=== PATIENT | male | born 1970 | race Two or more races ===

== ENCOUNTER 2020-01-06 09:24 | Day surgery (SDC) | payer OTHER ==
[~2020-01-06 09:24] MED LIST: PROPOFOL INJ 200 MG/20 ML VIAL IV ONE
[2020-01-06 11:57] VITALS: BP 115/80
--- NOTE | 2020-01-06 12:42 | Operative Report ---
Operative Report DATE OF SURGERY: 01/06/20 Operative Report: The risk, benefits and alternatives of the procedure including the risk of bleeding, perforation requiring surgery have been explained to the patient in detail and informed consent has been obtained. The patient is placed in a left, lateral decubital position. Timeout was called. Propofol medication is administered. Rectal examination is done which did not reveal any masses, tears or fissures. An Olympus videoscope was introduced into the patient's rectum. Scope was then carefully advanced all the way to the cecum. Cecum was identified by the usual anatomical landmarks including the ileocecal valve as well as the appendiceal office. Photodocumentation was obtained. The scope was then sequentially pulled back through the various segments of the colon. Retroflexion maneuvers performed. PREOPERATIVE DIAGNOSIS: Colorectal cancer screening POSTOPERATIVE DIAGNOSIS: Normal screening colonoscopy OPERATION: Diagnostic colonoscopy SURGEON: SHERLEY RODARTE ANESTHESIA: LMAC TISSUE REMOVED OR ALTERED: None. COMPLICATIONS: None. ESTIMATED BLOOD LOSS: None. INTRAOPERATIVE FINDINGS: As noted above. PROCEDURE: Patient tolerated the procedure well. No immediate postprocedure complications are noted. Patient is discharged in good condition. Discharge date 01/06/2020. Discharge diet: Regular. Discharge activity: Regular. 2 to 3-week follow-up to discuss findings. Patient is instructed call the office or proceed to the emergency room should there be any further problems or questions. 10-year surveillance colonoscopy.
== END 2020-01-06 11:55 | disposition home or self-care (01) ==
LOC: END 09:24
PROVIDERS: ATTEND Internal Medicine Gastroenterology
DX: Z12.11 Encounter for screening for malignant neoplasm of colon (principal); I10 Essential (primary) hypertension; F17.210 Nicotine dependence, cigarettes, uncomplicated; Z79.899 Other long term (current) drug therapy
CPT/HCPCS: 45378; J2704; 812

== ENCOUNTER 2020-12-20 15:56 | Emergency (ER) | payer OTHER ==
[2020-12-20] MEDS ORDERED: ASPIRIN 81 MG TABLET, CHEWABLE PO ONE (16:29)
--- NOTE | 2020-12-20 16:33 | ER Document Report ---
ED Medical Screen (RME) - General Chief Complaint: Abnormal Lab Results Stated Complaint: ABNORMAL LABS Time Seen by Provider: 12/20/20 16:17 Primary Care Provider: CORWIN HERNANDEZ PA-C [Primary Care Provider] - Follow up as needed Notes: Patient is a 60-year-old male presents emergency department with an elevated troponin at his primary care's office. Patient states that he had his labs drawn yesterday and the results came back today. States that he first had chest pain 2 to 3 days ago. Says it would come and go. Exam: S1, S2. I have greeted and performed a rapid initial assessment of this patient. A comprehensive ED assessment and evaluation of the patient, analysis of test results and completion of medical decision making process will be conducted by an additional ED providers. TRAVEL OUTSIDE OF THE [place] IN LAST 30 DAYS: No - Related Data Allergies/Adverse Reactions: No Known Allergies Allergy (Verified 01/03/20 13:52) Past Medical History - Past Medical History Cardiac Medical History: Reports: Hx Hypertension Denies: Hx Coronary Artery Disease, Hx Heart Attack Pulmonary Medical History: Denies: Hx Asthma, Hx Bronchitis, Hx COPD, Hx Pneumonia Neurological Medical History: Denies: Hx Cerebrovascular Accident, Hx Seizures Musculoskeltal Medical History: Denies Hx Arthritis - Immunizations Hx Diphtheria, Pertussis, Tetanus Vaccination: No Physical Exam - Vital signs Vitals: Temp Pulse Resp BP Pulse Ox 98.2 F 65 20 149/96 H 97 12/20/20 16:02 12/20/20 16:02 12/20/20 16:02 12/20/20 16:02 12/20/20 16:02 Course - Vital Signs Vital signs: Temp Pulse Resp BP Pulse Ox 98.2 F 65 20 149/96 H 97 12/20/20 16:02 12/20/20 16:02 12/20/20 16:02 12/20/20 16:02 12/20/20 16:02 Doctor's Discharge - Discharge Referrals: CORWIN HERNANDEZ PA-C [Primary Care Provider] - Follow up as needed
--- NOTE | 2020-12-20 17:04 | RADIOLOGY REPORT (SQ) ---
EXAM DESCRIPTION: CHEST SINGLE VIEW IMAGES COMPLETED DATE/TIME: 12/20/2020 3:43 pm REASON FOR STUDY: chest pain. COMPARISON: None. EXAM PARAMETERS: NUMBER OF VIEWS: One view. TECHNIQUE: Single frontal radiographic view of the chest acquired. RADIATION DOSE: NA LIMITATIONS: None. FINDINGS: LUNGS AND PLEURA: No opacities, masses or pneumothorax. No pleural effusion. MEDIASTINUM AND HILAR STRUCTURES: No masses. Contour normal. HEART AND VASCULAR STRUCTURES: Heart normal in size. Normal vasculature. BONES: No acute findings. HARDWARE: None in the chest. OTHER: No other significant finding. IMPRESSION: NO ACUTE RADIOGRAPHIC FINDING IN THE CHEST. TECHNICAL DOCUMENTATION: JOB ID: [id number] [employer]- All Rights Reserved Reading location - IP/workstation name: [email or web address]
[2020-12-20 17:42] LABS: ABSOLUTE EOSINOPHILS # (AUTO) 0.1 10^3/uL (0.0-0.6); ABSOLUTE LYMPHOCYTES (AUTO) 1.7 10^3/uL (0.5-4.7); ABSOLUTE MONOCYTES (AUTO) 0.5 10^3/uL (0.1-1.4); BASOPHILS % (AUTO) 0.8 % (0-2); EOSINOPHILS % (AUTO) 2.1 % (0-6); HEMOGLOBIN 15.7 g/dL (13.5-17.0); LYMPHOCYTES % (AUTO) 31.2 % (13-45); MEAN CORPUSCULAR HEMOGLOBIN 32.4 pg (27.0-33.4); MEAN CORPUSCULAR HGB CONC 34.8 g/dL (32.0-36.0); MEAN CORPUSCULAR VOLUME 93 fl (80-97); MONOCYTES % (AUTO) 10.2 % (3-13); PLATELET COUNT 217 10^3/uL (150-450); RED BLOOD COUNT 4.83 10^6/uL (4.35-5.55); RED CELL DISTRIBUTION WIDTH 13.3 % (11.5-14.0); SEGMENTED NEUTROPHILS % (AUTO) 55.7 % (42-78); TOTAL CELLS COUNTED % (AUTO) 100 %; WHITE BLOOD COUNT 5.3 10^3/uL (4.0-10.5)
[2020-12-20 18:01] LABS: ALBUMIN 4.6 g/dL (3.5-5.0); ALKALINE PHOSPHATASE 61 U/L (38-126); ANION GAP 8 (5-19); ASPARTATE AMINO TRANSFERASE 45 U/L (17-59); BILIRUBIN,DIRECT 0.2 mg/dL (0.0-0.4); BILIRUBIN,TOTAL 0.9 mg/dL (0.2-1.3); BLOOD UREA NITROGEN 26 mg/dL (7-20); CALCIUM 9.5 mg/dL (8.4-10.2); CARBON DIOXIDE 31 mmol/L (22-30); CHLORIDE 100 mmol/L (98-107); CREATINE KINASE 113 U/L (55-170); GLUCOSE 94 mg/dL (75-110); POTASSIUM 4.3 mmol/L (3.6-5.0); TOTAL PROTEIN 7.7 g/dL (6.3-8.2)
--- NOTE | 2020-12-20 18:59 | ER Document Report ---
ED General - General Chief Complaint: Abnormal Lab Results Stated Complaint: ABNORMAL LABS Time Seen by Provider: 12/20/20 16:17 Primary Care Provider: YARON WATSON MD [ACTIVE STAFF] - Follow up tomorrow CORWIN HERNANDEZ PA-C [PHYSICIAN CARPENTRY SUPERVISOR] - Follow up tomorrow TRAVEL OUTSIDE OF THE [place] IN LAST 30 DAYS: No - HPI Notes: Patient is a 50-year-old male with a past medical history of hypertension and high cholesterol who presents with episodes of chest pain. Patient states he has anxiety and white coat syndrome. He went to his doctors for a physical on Monday. He states he was very stressed there. They measured a blood pressure of 200. He attributes this all to stress. On , he woke up and was having left-sided chest tightness that radiated down his left arm. It lasted about 5 minutes. He states he was not nauseous but did feel a bit "off ". He laid down and symptoms resolved within 5 minutes. The same episode happen Monday morning. He went to his PCP's office on where he had an EKG and blood work. They called him today and told him to go to the ER because his cardiac enzymes were elevated. Patient is currently denying any chest pain at all. He states that he was active after the appointment and raked leaves and walked around and did not have any chest pain at all with movement. He is symptom-free. Patient already had aspirin today. - Related Data Allergies/Adverse Reactions: No Known Allergies Allergy (Verified 01/03/20 13:52) Home Medications: Candesartan-HCTZ Past Medical History - General Information source: Patient, Relative - Social History Smoking Status: Current Some Day Smoker Frequency of alcohol use: Social Drug Abuse: None Family History: CAD - Past Medical History Cardiac Medical History: Reports: Hx Hypercholesterolemia, Hx Hypertension Denies: Hx Coronary Artery Disease, Hx Heart Attack Pulmonary Medical History: Denies: Hx Asthma, Hx Bronchitis, Hx COPD, Hx Pneumonia Neurological Medical History: Denies: Hx Cerebrovascular Accident, Hx Seizures Musculoskeletal Medical History: Denies Hx Arthritis - Immunizations Hx Diphtheria, Pertussis, Tetanus Vaccination: No Review of Systems - Review of Systems Notes: CONSTITUTIONAL: No fever, fatigue or weight loss. SKIN: No rash. HENT: No congestion, ear pain, or sore throat. EYES: No recent vision problems or eye pain. CARDIOVASCULAR: Positive for episode of chest pain. RESPIRATORY: No cough, shortness of breath, congestion, or wheezing. GASTROINTESTINAL: No abdominal pain, nausea, vomiting, bloody stools or diarrhea. GENITOURINARY: No dysuria. MUSCULOSKELETAL: No joint pain or swelling. LYMPHATIC: No swollen glands. NEUROLOGIC: No seizures. No headache, focal weakness or sensory changes. HEMATOLOGIC: No unusual bruising or bleeding. PSYCHIATRIC: No depression or anxiety. Physical Exam - Vital signs Vitals: Temp Pulse Resp BP Pulse Ox 98.2 F 65 20 149/96 H 97 12/20/20 16:02 12/20/20 16:02 12/20/20 16:02 12/20/20 16:02 12/20/20 16:02 - General General appearance: Appears well In distress: None Notes: VITAL SIGNS: Within normal limits. GENERAL: No acute distress, non-toxic appearance. HEAD: Normal with no signs of head trauma. EYES: Conjunctiva normal, no discharge. EARS: Hearing grossly intact. NOSE: Normal. NECK: Normal range of motion. Supple. CHEST: Clear breath sounds bilaterally. No wheezes, rales, or rhonchi. CARDIAC: Regular rate and rhythm. S1 and S2, without murmurs, gallops, or rubs. VASCULAR: No Edema. ABDOMEN: Normal and soft with no tenderness. GENITOURINARY: Normal, No tenderness MUSCULOSKELETAL: Good range of motion of all major joints. Extremities without clubbing, cyanosis or edema. NEUROLOGICAL: Alert and oriented x 3. No focal sensory or strength deficits. Speech normal. Follows commands appropriately. PSYCHIATRIC: Normal Affect, judgement and mood. SKIN: Normal appearance with no rashes or lesions. Course - Re-evaluation Re-evalutation: 12/20/20 18:59 Patient appears well on exam. He is talking with his and smiling and in no acute distress. He is pain-free. We will obtain 2 sets of enzymes. His first enzyme was indeterminate. His EKG is unremarkable. I will discuss with cardiology. Patient second enzyme is normal. I discussed with Dr. Callejas from cardiology. Due to his risk factors, he recommended patient be admitted to the hospital and have a stress test in the morning. I discussed all this with the patient. He states that he feels fine and he would rather go home. I explained the risks of going home. He states he understands the risks. He states he will call his family doctor in the morning. I told him that he needs to also call cardiology. He was given strict return precautions. Patient is very agreeable. 12/21/20 01:27 - Vital Signs Vital signs: Temp Pulse Resp BP Pulse Ox 98.0 F 67 20 146/97 H 100 12/20/20 21:04 12/20/20 21:04 12/20/20 21:04 12/20/20 21:04 12/20/20 21:04 - Laboratory Results Result Diagrams: 12/20/20 17:05 12/20/20 17:05 Laboratory Results Interpreted: 12/20/20 17:05 Carbon Dioxide 31 H BUN 26 H ALT 57 H Critical Laboratory Results Reviewed: No Critical Results - Radiology Results Critical Radiology Results Reviewed: No Critical Results - EKG Interpretation by [facility] EKG shows normal: Sinus rhythm Rate: Normal Rhythm: NSR When compared to previous EKG there are: Previous EKG unavailable Additional EKG results interpreted by me: 12/20/20 18:58 Sinus rhythm at a rate of 66. QTc 432. No acute ST changes. No previous EKG available for comparison. Discharge - Discharge Clinical Impression: Chest pain Qualifiers: Chest pain type: unspecified Qualified Code(s): R07.9 - Chest pain, unspecified Condition: Stable Disposition: HOME, SELF-CARE Instructions: Chest Pain of Unclear Cause ([facility]) Additional Instructions: Please call your family doctor first thing in the morning to have follow-up with cardiology. Return to the ER immediately for any return of pain, any nausea, vomiting, shortness of breath, lightheadedness, any other concerning symptoms. Referrals: CORWIN HERNANDEZ PA-C [PHYSICIAN CARPENTRY SUPERVISOR] - Follow up tomorrow YARON WATSON MD [ACTIVE STAFF] - Follow up tomorrow
[2020-12-20 21:06] VITALS: BP 146/97
--- NOTE | 2020-12-20 21:23 | EKG REPORT ---
SEVERITY:- ABNORMAL ECG - SINUS RHYTHM PROBABLE LEFT VENTRICULAR HYPERTROPHY BORDERLINE T ABNORMALITIES, INFERIOR LEADS : Confirmed by: Lico Araujo MD 20-Dec-2020 21:22:54
== END 2020-12-20 21:04 | disposition home or self-care (01) ==
LOC: ER 15:56
DX: R07.9 Chest pain, unspecified (principal); R79.89 Other specified abnormal findings of blood chemistry; M79.602 Pain in left arm; Z79.899 Other long term (current) drug therapy; F17.200 Nicotine dependence, unspecified, uncomplicated; I10 Essential (primary) hypertension
CPT/HCPCS: 36415; 71045; 80053; 82550; 83735; 84484; 85025; 93005; 93010; 99285